=== PATIENT | female | born 1955 | race Caucasian/White ===

== ENCOUNTER 2019-12-29 11:25 | Emergency (ER) | payer OTHER ==
--- NOTE | 2019-12-29 11:35 | EDM.PDOC ---
ED HPI GENERAL MEDICAL PROBLEM - General Stated Complaint: PT SLIPPED AND FELL Time Seen by Provider: 12/29/19 11:35 Source of Information: Reports: Patient History Limitations: Reports: No Limitations - History of Present Illness INITIAL COMMENTS - FREE TEXT/NARRATIVE: HISTORY AND PHYSICAL: History of present illness: Patient is a 64-year-old female who presents to the emergency room with complaints of pain post standing height fall. She states that she was playing with her grandchildren and had tripped over 1 of the toys causing her to stumble and fall. She is currently complaining of left thumb, left lateral foot and right rib pain. She was able to get up post fall and after reassessing she had some pain with weightbearing of the left lateral foot. States the pain does shoot up into her ankle. She has had some arthritis in the left thumb but felt that it appeared more swollen. Right ribs have pain with deep breaths or movement of her torso, believes she fell on a toy truck. She denies hitting her head or having any loss of consciousness. She denies any neck, back, or pelvic pain. Denies any urinary or fecal incontinence. Denies any numbness, tingling or saddle paresthesias. Patient denies any fever , chills, headache, change in vision, syncope or near syncope. Denies any chest pain, back pain, shortness of breath or cough. Denies any abdominal pain, nausea , vomiting, diarrhea, constipation or dysuria. Has not noted any blood in urine or stool. No chance of . Patient has been eating and drinking appropriately. Patient does not take any prescribed blood thinners nor aspirins. Review of systems: As per history of present illness and below otherwise all systems reviewed and negative. Past medical history: As per history of present illness and as reviewed below otherwise noncontributory. Surgical history: As per history of present illness and as reviewed below otherwise noncontributory. Social history: See social history for further information Family history: As per history of present illness and as reviewed below otherwise noncontributory. Physical exam: General: Well-developed and well-nourished 64-year-old female. Alert and oriented. Nontoxic-appearing and in no acute distress. Vital signs are stable and have been reviewed by me. HEENT: Nontender, normocephalic, pupils equal and reactive bilaterally, negative for conjunctival pallor or scleral icterus, mucous membranes moist, TMs normal bilaterally, throat clear, neck supple, nontender, trachea midline. No drooling or trismus noted. No meningeal signs. No hot potato voice noted. Lungs: Clear to auscultation, breath sounds equal bilaterally, right-sided axillary mid chest wall tenderness with palpation. Heart: S1S2, regular rate and rhythm without overt murmur Abdomen: Soft, nondistended, nontender. Negative for masses or hepatosplenomegaly. Negative for costovertebral tenderness. Pelvis: Stable nontender. C-spine/Back: No pinpoint vertebral tenderness upon palpation. No crepitus, step -offs or obvious deformities. Patient is ambulatory into the emergency room without difficulty or deficit. Able to rock back on heels and walk on toes. Denies any urinary or fecal incontinence. Denies any numbness, tingling or saddle paresthesia. Skin: Intact, warm, dry. No lesions or rashes noted. Extremities: Ambulatory, moves all extremities per self without difficulty or deficits, pain with palpation of the left lateral foot. No pain with palpation of the medial or lateral malleolus. Strong pedal pulses bilaterally. No foot drop, negative for cords or calf pain. Mild discomfort with palpation at the base of her left thumb, full range of motion. Neurovascular unremarkable. Neuro: Awake, alert, oriented. Cranial nerves II through XII unremarkable. Cerebellum unremarkable. Motor and sensory unremarkable throughout. Exam nonfocal. Notes: Pain medication was offered, she declined wanting anything stronger than ibuprofen. 800 mg of ibuprofen was dispensed while here. Awaiting x-ray reading. X-ray of the left thumb shows severe degenerative changes but no acute findings. X-ray of the chest shows no acute findings. Foot x-ray shows a calcaneal spur but no acute bony abnormalities. All findings were shared with the patient. She states that she has a stirrup splint at home but does not feel that that is very supportive and would like something to help keep her foot and ankle from "rolling". We did discuss CAM Walker boot which she would like at this time. Supportive care measures were reviewed and discussed. Voices understanding and is agreeable to plan of care. Denies any further questions or concerns at this time. Diagnostics: X-ray left foot, left thumb, chest with right rib detail Therapeutics: Ibuprofen, cam walker boot Prescription: Declines Impression: Fall Foot sprain, left Rib contusion, right Plan: 1. Rest, ice, elevate the affected extremity. Please wear the splint as directed. 2. Tylenol and/or Ibuprofen as needed for pain management. 3. Follow up with the Orthopedic provider as we discussed. Return to the ED as needed and as discussed. Definitive disposition and diagnosis as appropriate pending reevaluation and review of above. right ribs, left thumb, left ankle Pain Score (Numeric/FACES): 3 - Related Data Allergies Allergy/AdvReac Type Severity Reaction Status Date / Time prochlorperazine Allergy Rash Verified 12/29/19 11:43 [From Compazine] Home Meds: Home Meds Rosuvastatin [Crestor] 12/29/19 [History] ED ROS GENERAL - Review of Systems Review Of Systems: Comprehensive ROS is negative, except as noted in HPI. ED EXAM, GENERAL - Physical Exam Exam: See Below (See dictation) Course - Vital Signs Last Recorded V/S: Last Vital Signs Temp 96.8 F L 12/29/19 11:43 Pulse 75 12/29/19 11:43 Resp 18 12/29/19 11:43 BP 138/70 12/29/19 11:43 Pulse Ox 97 12/29/19 11:43 - Orders/Labs/Meds Orders: Active Orders 24 hr Category Date Time Status DME for Discharge [COMM] Stat Oth 12/29/19 13:48 Ordered Meds: Medications Discontinued Medications Generic Name Dose Route Start Last Admin Trade Name Freq PRN Reason Stop Dose Admin Ibuprofen 800 mg 12/29/19 12:31 12/29/19 12:38 Motrin PO 12/29/19 12:32 800 mg ONETIME ONE Administration Departure - Departure Time of Disposition: 13:50 Disposition: Home, Self-Care 01 Clinical Impression: Fall Qualifiers: Encounter type: initial encounter Qualified Code(s): W19.XXXA - Unspecified fall, initial encounter Contusion of rib on right side Qualifiers: Encounter type: initial encounter Qualified Code(s): S20.211A - Contusion of right front wall of thorax, initial encounter Sprain of foot, left Qualifiers: Encounter type: initial encounter Qualified Code(s): S93.602A - Unspecified sprain of left foot, initial encounter - Discharge Information Instructions: Contusion, [id number], Foot Sprain Referrals: PCP,Not In Area [Primary Care Provider] - Additional Instructions: The following information is given to patients seen in the emergency department who are being discharged to home. This information is to outline your options for follow-up care. We provide all patients seen in our emergency department with a follow-up referral. The need for follow-up, as well as the timing and circumstances, are variable depending upon the specifics of your emergency department visit. If you don't have a primary care physician on staff, we will provide you with a referral. We always advise you to contact your personal physician following an emergency department visit to inform them of the circumstance of the visit and for follow-up with them and/or the need for any referrals to a consulting specialist. The emergency department will also refer you to a specialist when appropriate. This referral assures that you have the opportunity for follow-up care with a specialist. All of these measure are taken in an effort to provide you with optimal care, which includes your follow-up. Under all circumstances we always encourage you to contact your private physician who remains a resource for coordinating your care. When calling for follow-up care, please make the office aware that this follow-up is from your recent emergency room visit. If for any reason you are refused follow-up, please contact the [facility] Emergency Department at and asked to speak to the emergency department charge nurse. [facility] [address] [place] [address] [address] 1. Rest, ice, elevate the affected extremity. Please wear the splint as directed. 2. Tylenol and/or Ibuprofen as needed for pain management. 3. Follow up with the Orthopedic provider as we discussed. Return to the ED as needed and as discussed. Sepsis Event Note - Focused Exam Vital Signs: Vital Signs Temp Pulse Resp BP Pulse Ox 12/29/19 11:43 96.8 F L 75 18 138/70 97 Date Exam was Performed: 12/29/19 Time Exam was Performed: 13:49 - My Orders Last 24 Hours: My Active Orders 12/29/19 13:48 DME for Discharge [COMM] Stat - Assessment/Plan Last 24 Hours: My Active Orders 12/29/19 13:48 DME for Discharge [COMM] Stat
[2019-12-29] MEDS ORDERED: Ibuprofen 800 MG Tab PO ONE (12:31)
--- NOTE | 2019-12-29 13:35 | CR ---
Left thumb: 3 views centered to the left thumb were obtained. Comparison: No previous thumb or hand exam is available. Severe degenerative change is noted within the CMC joint of the thumb. No acute fracture, dislocation or other bony abnormality is appreciated. Impression: 1. 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 2. Left thumb study is otherwise unremarkable. Diagnostic code #2 This report was dictated in MDT
--- NOTE | 2019-12-29 13:41 | CR ---
Left foot: 2 views left foot were obtained. Comparison: No previous foot study is available. Small plantar spur is seen. Small spur is noted at the attachment of the Achilles tendon to the calcaneus. No acute fracture or dislocation is seen. Impression: 1. Calcaneal spurs. 2. No additional abnormality is definitely appreciated on this 2 view left foot study. Diagnostic code #2 This report was dictated in MDT MTDD
--- NOTE | 2019-12-29 13:42 | CR ---
Chest and right ribs: Frontal view of the chest was obtained as well as 2 views of the right ribs. Comparison: No previous chest imaging is available. Heart size is normal. Tortuous thoracic aorta is seen. Lungs show no acute parenchymal change. No discrete right-sided rib abnormality is appreciated. Impression: 1. Nothing acute seen on frontal chest x-ray. 2. No discrete right-sided rib abnormality is appreciated. Diagnostic code #2 This report was dictated in MDT MTDD
== END 2019-12-29 14:08 | disposition home or self-care (01) ==
LOC: MW.ED 11:25
DX: S93.602A Unspecified sprain of left foot, initial encounter (principal); S20.211A Contusion of right front wall of thorax, initial encounter; W01.0XXA Fall on same level from slipping, tripping and stumbling without subsequent striking against object, initial encounter
CPT/HCPCS: 71101; 73140; 73620; 99283; A9270; 99284